=== PATIENT | female | born 1955 | race Caucasian/White ===

== ENCOUNTER 2017-05-29 06:42 | Day surgery (SDC) | payer OTHER ==
[2017-05-29] MEDS ORDERED: Lactated Ringers 1,000 ML IV SCH (06:45)
[2017-05-29] MEDS ORDERED: Sodium Chloride 0.9% 10 ML Syringe FLUSH PRN (06:45)
[2017-05-29] MEDS ORDERED: Midazolam 1 MG/ML 2 ML SDV IV ONE (08:00)
[2017-05-29] MEDS ORDERED: Propofol 200 MG/20 ML SDV IV ONE (08:00)
--- NOTE | 2017-05-29 08:48 | PCM.OPNOTE ---
- General Post-Op/Procedure Note Date of Surgery/Procedure: 05/29/17 Operative Procedure(s): egd with bx. c scope Findings: gastritis and esophagitis normal colon Pre Op Diagnosis: epigastric abd pain nausea hx of ulcer in stomach and esophagus. due for screening c scope. Post-Op Diagnosis: gastritis and esophagitis. normal colon Anesthesia Technique: MAC Primary Surgeon: Juwan Coburn Anesthesia Provider: Eugenia Ham Pathology: stomach and esophagus Complications: None Condition: Good Free Text/Narrative:: see dictation
--- NOTE | 2017-05-29 09:36 | OR ---
DATE OF OPERATION: 05/29/2017 SURGEON: Juwan Coburn MD PROCEDURE PERFORMED: Upper endoscopy and colonoscopy. PREOPERATIVE DIAGNOSIS: History of gastric ulcer and esophageal ulcer with a history of abdominal pain and need for screening C scope. POSTOPERATIVE DIAGNOSIS: Gastritis and esophagitis. Normal colon. INDICATIONS FOR PROCEDURE: This is a 61-year-old white female, who presents with a history of some epigastric discomfort. She has a history of gastric and esophageal ulceration in the past. Her symptoms were also accompanied by some nausea. She was offered and accepted an upper endoscopy. In addition, she was due for a screening colonoscopy, and she was offered and accepted that as well. DESCRIPTION OF PROCEDURE: After an excellent IV sedation was administered, the bite block was inserted. The flexible endoscope was passed without difficulty down the patient's esophagus into the stomach. The stomach was inflated, and the scope was passed through the pylorus to the second portion of duodenum and slowly withdrawn. The following findings were noted. The duodenum was unremarkable. Stomach demonstrated very friable mucosa with linear erythema. Biopsies were taken. Distal esophagus, mild erythema in the distal 2 to 3 cm. Biopsies were taken as well. The remainder of the esophageal exam was unremarkable. Attention was then turned to the colon. Digital rectal exam was performed. No marked abnormality was noted. Flexible colonoscope was inserted and advanced to the cecum without difficulty. The scope was removed. Mucosa was carefully inspected. The following findings were noted. Ascending colon, unremarkable. Transverse colon, unremarkable. Descending colon, unremarkable. Sigmoid and rectum unremarkable. Colon was deflated. The patient tolerated the procedure well and was taken to recovery in good condition. /[id number] /MODL
[2017-05-29 10:02] VITALS: BP 120/65
== END 2017-05-29 10:09 | disposition home or self-care (01) ==
LOC: FB.SDS 06:42
PROVIDERS: ATTEND Surgery
DX: K29.50 Unspecified chronic gastritis without bleeding (principal); K20.9 Esophagitis, unspecified; E03.9 Hypothyroidism, unspecified; F32.9 Major depressive disorder, single episode, unspecified; M19.90 Unspecified osteoarthritis, unspecified site; M79.7 Fibromyalgia; J45.909 Unspecified asthma, uncomplicated; F41.9 Anxiety disorder, unspecified; K21.9 Gastro-esophageal reflux disease without esophagitis; Z79.899 Other long term (current) drug therapy; Z88.2 Allergy status to sulfonamides; Z88.5 Allergy status to narcotic agent; Z88.6 Allergy status to analgesic agent; Z90.49 Acquired absence of other specified parts of digestive tract; Z90.710 Acquired absence of both cervix and uterus; Z98.890 Other specified postprocedural states; Z87.891 Personal history of nicotine dependence
CPT/HCPCS: 43239; 45378; 88305; 88342; J2250; J2704; J7120